=== PATIENT | female | born 1965 | race Hispanic/Latino ===

== ENCOUNTER 2019-12-16 19:44 | Emergency (ER) | payer OTHER ==
[2019-12-16] MEDS ORDERED: ONDANSETRON HCL 4 MG/2 ML VIAL ONE (20:35)
[2019-12-16] MEDS ORDERED: MORPHINE SULFATE 4 MG/1ML SYG ONE (20:35)
[2019-12-16] MEDS ORDERED: ACETAMINOPHEN EXTRA STRENGTH 500 MG TABLET ONE (22:18)
== END 2019-12-16 23:19 | disposition home or self-care (01) ==
LOC: EDH 19:44
DX: S80.02XA Contusion of left knee, initial encounter (principal); S60.222A Contusion of left hand, initial encounter; I10 Essential (primary) hypertension; Z87.891 Personal history of nicotine dependence; W18.39XA Other fall on same level, initial encounter; Y93.01 Activity, walking, marching and hiking; Y92.89 Other specified places as the place of occurrence of the external cause; Y99.8 Other external cause status
CPT/HCPCS: 72100; 73130; 73502; 73562; 96374; 96375; 99284; J2270; J2405

== ENCOUNTER 2020-04-29 08:52 | Inpatient (IN) | payer SELFPAY ==
[~2020-04-29] VITALS: Ht 154.9 cm; Wt 104.2 kg
[2020-04-29 09:21] LABS: BASOPHILS % (AUTO) 0.2 % (0.0-5.0); EOSINOPHILS % (AUTO) 0.2 % (0.0-8.0); HEMATOCRIT 42.3 % (36-48); LYMPHOCYTES % (AUTO) 10.4 % (21.0-51.0); MEAN CORPUSCULAR HEMOGLOBIN 29.8 pg (27.0-33.0); MEAN CORPUSCULAR HGB CONC 32.9 g/dL (32.0-36.0); MEAN CORPUSCULAR VOLUME 90.6 fL (79-99); MONOCYTES % (AUTO) 9.6 % (3.0-13.0); NEUTROPHILS % (AUTO) 79.3 % (40.0-77.0); PLATELET COUNT (AUTO) 201 K/uL (130-400); RED BLOOD CELL COUNT(AUTO) 4.67 MIL/uL (4.00-5.50); RED CELL DISTRIBUTION WIDTH 12.9 % (11.0-15.5); WHITE BLOOD COUNT (AUTO) 9.8 K/uL (4.8-10.8)
[2020-04-29] MEDS ORDERED: MORPHINE SULFATE 4 MG/1ML SYG ONE ×2 (09:24→12:08)
[2020-04-29 09:32] LABS: APPEARANCE,URINE Cloudy (CLEAR); BILIRUBIN,URINE Negative (NEGATIVE); COLOR,URINE Dark Yellow (YELLOW); GLUCOSE, URINE (UA) Negative (NEGATIVE); KETONES,URINE Trace mg/dL (NEGATIVE); LEUKOCYTE ESTERASE ,URINE Negative (NEGATIVE); NITRATE,URINE Negative (NEGATIVE); OCCULT BLOOD,URINE Trace (NEGATIVE); PH,URINE 5.5 (5.0-8.0); PROTEIN,URINE Trace mg/dL (NEGATIVE)
[2020-04-29 09:37] LABS: CREATININE 0.7 mg/dL (0.5-1.5); POTASSIUM 3.4 mmol/L (3.5-5.1)
[2020-04-29 09:43] LABS: BILIRUBIN,DIRECT 0.1 mg/dL (0.0-0.3); BILIRUBIN,TOTAL 0.7 mg/dL (0.2-1.0); TOTAL PROTEIN, SERUM 7.7 g/dL (6.0-8.3)
[2020-04-29 09:49] LABS: BACTERIA,URINE Rare /HPF (None Seen); RBC,URINE 0-1 /HPF (0-1); WBC,URINE None Seen /HPF (0-1)
[2020-04-29 09:50] LABS: MUCUS,URINE Many LPF (None Seen)
[2020-04-29] MEDS ORDERED: IOHEXOL-350 75 ML VIAL IV ONE (12:27)
[2020-04-29] MEDS ORDERED: ACETAMINOPHEN 325 MG TAB PO PRN ×2 (16:15)
[2020-04-29] MEDS ORDERED: ONDANSETRON HCL 4 MG/2 ML VIAL IV PRN (16:15)
[2020-04-29] MEDS: AZITHROMYCIN 500MG+NS 250ML 250 ML IV SCH (16:15)
[2020-04-29] MEDS: CEFTRIAXONE SODIUM 1 GM IV SCH (16:15)
[2020-04-29] MEDS ORDERED: INSULIN HUMULIN R 100 UNIT/ML 3ML SQ SCH (16:30)
[2020-04-29 16:43] LABS: CHOLESTEROL 211 mg/dL (<200); HDL CHOLESTEROL 101 mg/dL (35-85); LDL DIRECT 133 mg/dL (0-99); TRIGLYCERIDES 91 mg/dL (30-200)
[2020-04-29] MEDS ORDERED: SODIUM CHLORIDE 0.9% 1000ML 1,000 ML IV ONE (16:51)
[2020-04-29] MEDS ORDERED: AZITHROMYCIN 500MG+NS 250ML 250 ML IV ONE (16:51)
[2020-04-29] MEDS ORDERED: CEFTRIAXONE SODIUM 1 GM ONE (16:51)
[2020-04-29] MEDS ORDERED: POTASSIUM CHLORIDE 10% ELIXIR 20 MEQ/15 ML UDCUP PO PRN (17:00)
[2020-04-29] MEDS ORDERED: LIDOCAINE HCL-MPF 1% 2ML VIAL IV PRN (17:00)
[2020-04-29] MEDS ORDERED: POTASSIUM CHLORIDE 10MEQ/100ML 100 ML IV PRN (17:00)
[2020-04-29] MEDS ORDERED: POTASSIUM CHLORIDE 20 MEQ ERTAB PO PRN (17:00)
[2020-04-29] MEDS ORDERED: HYDROMORPHONE HCL 0.5 MG/0.5 ML ML ONE (17:12)
[2020-04-29 20:07] LABS: HEMOGLOBIN A1C 5.6 % (4.0-6.0)
[2020-04-29] MEDS: FAMOTIDINE/PF 20 MG/2 ML VIAL IV SCH (21:00)
[2020-04-29 21:05] VITALS: BP 146/100
[2020-04-29] MEDS: HYDROMORPHONE HCL 0.5 MG/0.5 ML ML IV PRN (21:14)
[2020-04-29] MEDS: SODIUM CHLORIDE 0.9% 1000ML 1,000 ML IV SCH (21:35)
[2020-04-29] MEDS: MORPHINE SULFATE 2 MG/ML 1ML SYG IV PRN (21:36)
[2020-04-29 23:22] VITALS: BP 140/81
[2020-04-30] MEDS: SODIUM CHLORIDE 0.9% 1000ML 1,000 ML IV SCH ×3 (01:26→19:38)
[2020-04-30 03:40] VITALS: BP 142/78
[2020-04-30] MEDS: HYDROMORPHONE HCL 0.5 MG/0.5 ML ML IV PRN ×3 (05:44→19:39)
[2020-04-30 06:01] LABS: BASOPHILS % (AUTO) 0.2 % (0.0-5.0); EOSINOPHILS % (AUTO) 0.2 % (0.0-8.0); HEMATOCRIT 39.1 % (36-48); LYMPHOCYTES % (AUTO) 11.9 % (21.0-51.0); MEAN CORPUSCULAR HEMOGLOBIN 30.4 pg (27.0-33.0); MEAN CORPUSCULAR HGB CONC 34.3 g/dL (32.0-36.0); MEAN CORPUSCULAR VOLUME 88.7 fL (79-99); MONOCYTES % (AUTO) 10.4 % (3.0-13.0); NEUTROPHILS % (AUTO) 76.9 % (40.0-77.0); PLATELET COUNT (AUTO) 172 K/uL (130-400); RED BLOOD CELL COUNT(AUTO) 4.41 MIL/uL (4.00-5.50); RED CELL DISTRIBUTION WIDTH 12.5 % (11.0-15.5); WHITE BLOOD COUNT (AUTO) 8.1 K/uL (4.8-10.8)
[2020-04-30 06:15] LABS: ALBUMIN 2.5 g/dL (3.5-5.0); BILIRUBIN,TOTAL 0.6 mg/dL (0.2-1.0); CREATININE 0.6 mg/dL (0.5-1.5); POTASSIUM 3.2 mmol/L (3.5-5.1); TOTAL PROTEIN, SERUM 6.6 g/dL (6.0-8.3)
[2020-04-30 08:00] VITALS: BP 145/93
[2020-04-30] MEDS: FAMOTIDINE/PF 20 MG/2 ML VIAL IV SCH ×2 (08:48→19:38)
[2020-04-30] MEDS: MORPHINE SULFATE 2 MG/ML 1ML SYG IV PRN ×2 (08:48→23:39)
[2020-04-30] MEDS: ENOXAPARIN SODIUM 30 MG/0.3 ML SQ SCH (08:49)
--- NOTE | 2020-04-30 09:00 | NUR ---
ON 1/2 SCALE POT. PROTOCOL. DOES NOT REQUIRE COVERAGE FOR 3.2
[2020-04-30 12:00] VITALS: BP 168/87
[2020-04-30 16:00] VITALS: BP_SYST 132; BP_SYST 158; BP_DIAS 68; BP_DIAS 98
--- NOTE | 2020-04-30 16:47 | NUR ---
SPOKE TO PATIENT AT BEDSIDE FOR DC PLNAING PATIENT STATES LIVES ALONE- FATHER RECENTLY , SON RECENTLY MOVED OUT, EX SPOUSE IS ON FACE SHEET - PATIENT STATES LEAVE IM NEXT OF KIN STATES INDEPENDENT, DRIVES, NO DMES, GRIEVING FROM RECENT LOSS OF PARENT, NO MD, HAS NOT BEEN TO MD IN MANY YEARS, [employer] DISCUSSED WILL FOLLOW UP ON DISCHARGE Addendum: 04/30/20 at 1649 by EZEQUIEL MAY RN CM Amended: Links added.
[2020-04-30] MEDS: AZITHROMYCIN 500MG+NS 250ML 250 ML IV SCH (16:57)
[2020-04-30] MEDS: CEFTRIAXONE SODIUM 1 GM IV SCH (16:57)
[2020-04-30 19:58] VITALS: BP 184/93
[2020-05-01 00:03] VITALS: BP_SYST 83
[2020-05-01 04:19] VITALS: BP 158/98
[2020-05-01] MEDS: HYDROMORPHONE HCL 0.5 MG/0.5 ML ML IV PRN ×4 (04:21→21:35)
[2020-05-01 05:59] LABS: BASOPHILS % (AUTO) 0.2 % (0.0-5.0); EOSINOPHILS % (AUTO) 0.1 % (0.0-8.0); HEMATOCRIT 42.9 % (36-48); LYMPHOCYTES % (AUTO) 9.1 % (21.0-51.0); MEAN CORPUSCULAR HEMOGLOBIN 29.9 pg (27.0-33.0); MEAN CORPUSCULAR HGB CONC 34.3 g/dL (32.0-36.0); MEAN CORPUSCULAR VOLUME 87.4 fL (79-99); MONOCYTES % (AUTO) 9.6 % (3.0-13.0); NEUTROPHILS % (AUTO) 80.6 % (40.0-77.0); PLATELET COUNT (AUTO) 221 K/uL (130-400); RED BLOOD CELL COUNT(AUTO) 4.91 MIL/uL (4.00-5.50); RED CELL DISTRIBUTION WIDTH 12.2 % (11.0-15.5); WHITE BLOOD COUNT (AUTO) 8.9 K/uL (4.8-10.8)
[2020-05-01 06:17] LABS: ALBUMIN 2.7 g/dL (3.5-5.0); BILIRUBIN,TOTAL 0.6 mg/dL (0.2-1.0); CREATININE 0.6 mg/dL (0.5-1.5); MAGNESIUM 2.5 mg/dL (1.80-2.40); POTASSIUM 3.8 mmol/L (3.5-5.1); TOTAL PROTEIN, SERUM 7.4 g/dL (6.0-8.3)
[2020-05-01] MEDS: MORPHINE SULFATE 2 MG/ML 1ML SYG IV PRN (06:30)
[2020-05-01 07:30] VITALS: BP 148/85
[2020-05-01 11:00] VITALS: BP 149/87
[2020-05-01] MEDS: ENOXAPARIN SODIUM 30 MG/0.3 ML SQ SCH (11:00)
[2020-05-01] MEDS: CEFTRIAXONE SODIUM 1 GM IV SCH (11:00)
[2020-05-01] MEDS: AMLODIPINE BESYLATE 5 MG TAB PO SCH (11:00)
[2020-05-01] MEDS: AZITHROMYCIN 500MG+NS 250ML 250 ML IV SCH (11:00)
[2020-05-01] MEDS: FAMOTIDINE/PF 20 MG/2 ML VIAL IV SCH ×2 (11:00→20:14)
[2020-05-01] MEDS: SODIUM CHLORIDE 0.9% 1000ML 1,000 ML IV SCH ×2 (11:01→15:35)
[2020-05-01 16:00] VITALS: BP 162/100
[2020-05-01 20:59] VITALS: BP 168/93
[2020-05-02] VITALS (27 sets, daily range): BP systolic 119–170; BP diastolic 56–100
[2020-05-02] MEDS: HYDROMORPHONE HCL 0.5 MG/0.5 ML ML IV PRN ×3 (02:12→22:28)
[2020-05-02] MEDS: SODIUM CHLORIDE 0.9% 1000ML 1,000 ML IV SCH ×2 (03:44→14:15)
[2020-05-02 06:03] LABS: HEMATOCRIT 41.2 % (36-48); MEAN CORPUSCULAR HEMOGLOBIN 29.8 pg (27.0-33.0); MEAN CORPUSCULAR HGB CONC 34.2 g/dL (32.0-36.0); MEAN CORPUSCULAR VOLUME 87.1 fL (79-99); RED BLOOD CELL COUNT(AUTO) 4.73 MIL/uL (4.00-5.50); RED CELL DISTRIBUTION WIDTH 12.2 % (11.0-15.5); WHITE BLOOD COUNT (AUTO) 7.8 K/uL (4.8-10.8)
[2020-05-02 06:24] LABS: CARBON DIOXIDE 23 mmol/L (21-32); CHLORIDE 101 mmol/L (101-111); CREATININE 0.7 mg/dL (0.5-1.5); GLOMERULAR FILTR. RATE CALC 93 mL/min (>60); GLUCOSE,RANDOM 80 mg/dL (70-105); POTASSIUM 3.4 mmol/L (3.5-5.1); SODIUM SERUM 137 mmol/L (136-145); UREA NITROGEN, BLOOD 9 mg/dL (7-18)
[2020-05-02] MEDS: AMLODIPINE BESYLATE 5 MG TAB PO SCH (09:39)
[2020-05-02] MEDS: FAMOTIDINE/PF 20 MG/2 ML VIAL IV SCH ×2 (09:39→21:39)
[2020-05-02] MEDS: ENOXAPARIN SODIUM 30 MG/0.3 ML SQ SCH (09:39)
[2020-05-02] MEDS ORDERED: PROPOFOL 10 MG/ML 20ML VIAL IV ONE (14:15)
[2020-05-02 21:39] LABS: APPEARANCE BODY FLUID CLEAR (CLEAR); SPECIMENTYPE,BODY FLUID LAVAGE
[2020-05-02 21:40] LABS: BODY FLUID RBC 476 /cu. mm.; BODY FLUID WBC 57 /cu. mm.; COLOR,BODY FLUID COLORLESS (LT YELLOW); TOTAL VOLUME,BODY FLUID 30 mL
[2020-05-02 22:06] LABS: BF LYMPHOCYTE 23 %; BF MESOTHELIAL 1 %; BF MONOCYTE 1 %; BF OTHER CELLS 3
[2020-05-03] MEDS: SODIUM CHLORIDE 0.9% 1000ML 1,000 ML IV SCH ×2 (00:15→12:08)
[2020-05-03] MEDS: HYDROMORPHONE HCL 0.5 MG/0.5 ML ML IV PRN ×2 (03:17→09:39)
[2020-05-03 03:32] VITALS: BP 171/99
[2020-05-03 07:30] VITALS: BP 154/105
[2020-05-03] MEDS: AMLODIPINE BESYLATE 5 MG TAB PO SCH (09:33)
[2020-05-03] MEDS: FAMOTIDINE/PF 20 MG/2 ML VIAL IV SCH (09:33)
[2020-05-03] MEDS: ENOXAPARIN SODIUM 30 MG/0.3 ML SQ SCH (09:34)
[2020-05-03 11:32] VITALS: BP 171/99
[2020-05-03] MEDS ORDERED: AZIT250T9 PO (11:40)
[2020-05-03] MEDS ORDERED: IBUP-2077 PO (11:40)
[2020-05-03] MEDS ORDERED: LISI1TAB32 PO (11:40)
[2020-05-03] MEDS ORDERED: AMLO5TAB4 PO (11:40)
[2020-05-03] MEDS ORDERED: LISINOPRIL 10 MG TABLET PO SCH (11:45)
[2020-05-03] MEDS ORDERED: HYDROCHLOROTHIAZIDE 25 MG TABLET PO SCH (11:45)
== END 2020-05-03 14:59 | disposition home or self-care (01) | DRG 194 ==
LOC: EDH 08:52 → EDHIP 08:53 → 4BH 20:27
PROVIDERS: ADMIT Hospitalist; ATTEND Hospitalist
PROC: 0B9F8ZX Drainage of Right Lower Lung Lobe, Via Natural or Artificial Opening Endoscopic, Diagnostic (ICD-10-PCS; principal; 2020-05-02)
PROC: 0BD68ZX Extraction of Right Lower Lobe Bronchus, Via Natural or Artificial Opening Endoscopic, Diagnostic (ICD-10-PCS; 2020-05-02)
DX: J15.9 Unspecified bacterial pneumonia (principal); Z68.42 Body mass index [BMI] 45.0-49.9, adult; J90 Pleural effusion, not elsewhere classified; K86.1 Other chronic pancreatitis; Z20.828 Contact with and (suspected) exposure to other viral communicable diseases; F17.200 Nicotine dependence, unspecified, uncomplicated; I10 Essential (primary) hypertension; Z90.710 Acquired absence of both cervix and uterus; Z98.891 History of uterine scar from previous surgery; F41.9 Anxiety disorder, unspecified; F32.9 Major depressive disorder, single episode, unspecified; E78.5 Hyperlipidemia, unspecified; E78.00 Pure hypercholesterolemia, unspecified; E87.6 Hypokalemia; E66.01 Morbid (severe) obesity due to excess calories; F12.90 Cannabis use, unspecified, uncomplicated; R63.4 Abnormal weight loss; R16.0 Hepatomegaly, not elsewhere classified
CPT/HCPCS: 31622; 31628; 36415; 71045; 74177; 76000; 76705; 80048; 80053; 80061; 80076; 81001; 81025; 82150; 82948; 83036; 83690; 83735; 83880; 84145; 85025; 85027; 87071; 87101; 87116; 87205; 87206; 87426; 89051; A4606; G0378; J0456; J0696; J1170; J1650; J2270; J2704; J3490; J7030; Q9967; U0003

== ENCOUNTER 2020-05-14 12:48 | Inpatient (IN) | payer SELFPAY ==
[~2020-05-14] VITALS: Ht 154.9 cm; Wt 103.5 kg
[~2020-05-14 12:48] MED LIST: AMLO5TAB4 PO; AZIT250T9 PO; IBUP-2077 PO; LISI1TAB32 PO
[2020-05-14 13:24] LABS: BASOPHILS % (AUTO) 0.2 % (0.0-5.0); EOSINOPHILS % (AUTO) 0.3 % (0.0-8.0); HEMATOCRIT 41.4 % (36-48); MEAN CORPUSCULAR HGB CONC 33.6 g/dL (32.0-36.0); MEAN CORPUSCULAR VOLUME 86.3 fL (79-99); MONOCYTES % (AUTO) 7.3 % (3.0-13.0); NEUTROPHILS % (AUTO) 80.8 % (40.0-77.0); PLATELET COUNT (AUTO) 316 K/uL (130-400); RED CELL DISTRIBUTION WIDTH 12.2 % (11.0-15.5); WHITE BLOOD COUNT (AUTO) 11.7 K/uL (4.8-10.8)
[2020-05-14 13:29] LABS: APPEARANCE,URINE Clear (CLEAR); BILIRUBIN,URINE Negative (NEGATIVE); COLOR,URINE Yellow (YELLOW); GLUCOSE, URINE (UA) Negative (NEGATIVE); KETONES,URINE Negative (NEGATIVE); LEUKOCYTE ESTERASE ,URINE Negative (NEGATIVE); NITRATE,URINE Negative (NEGATIVE); OCCULT BLOOD,URINE Negative (NEGATIVE); PH,URINE 5.5 (5.0-8.0); PROTEIN,URINE Negative (NEGATIVE); UROBILINOGEN,URINE 0.2 mg/dL (0.2-1.0)
[2020-05-14 13:32] LABS: CREATININE 0.9 mg/dL (0.5-1.5); POTASSIUM 3.1 mmol/L (3.5-5.1)
[2020-05-14 13:36] LABS: ALBUMIN 2.5 g/dL (3.5-5.0); BILIRUBIN,TOTAL 0.3 mg/dL (0.2-1.0); TOTAL PROTEIN, SERUM 7.5 g/dL (6.0-8.3)
[2020-05-14] MEDS ORDERED: SODIUM CHLORIDE 0.9% 1000ML 1,000 ML IV ONE ×2 (14:33→19:43)
[2020-05-14] MEDS ORDERED: ONDANSETRON HCL 4 MG/2 ML VIAL ONE ×2 (14:34→23:59)
[2020-05-14] MEDS ORDERED: DICYCLOMINE HCL 10 MG/ML 2ML AMP IM ONE (14:35)
[2020-05-14] MEDS ORDERED: MORPHINE SULFATE 2 MG/ML 1ML SYG ONE (14:35)
[2020-05-14] MEDS ORDERED: ZOSYN 3.375GM+NS 50ML 50 ML IV ONE (17:00)
[2020-05-14] MEDS: SODIUM CHLORIDE 0.9% 1000ML 1,000 ML IV SCH (18:30)
[2020-05-14] MEDS ORDERED: ACETAMINOPHEN 325 MG TAB PO PRN ×2 (18:30)
[2020-05-14] MEDS ORDERED: HYDRALAZINE HCL 20 MG/ML VIAL IV PRN (18:30)
[2020-05-14] MEDS ORDERED: MEPERIDINE-PF 50 MG/ML SYG IVP PRN (18:45)
[2020-05-14] MEDS ORDERED: FAMOTIDINE/PF 20 MG/2 ML VIAL IV ONE (19:43)
[2020-05-14] MEDS ORDERED: MEPERIDINE-PF 25 MG/ML SYG ONE ×2 (19:43→23:59)
[2020-05-14] MEDS: ZOSYN 3.375GM+NS 50ML 50 ML IV SCH (21:00)
[2020-05-14] MEDS: FAMOTIDINE/PF 20 MG/2 ML VIAL IV SCH (21:00)
[2020-05-15] VITALS (7 sets, daily range): BP systolic 115–161; BP diastolic 66–91
[2020-05-15] MEDS ORDERED: LIDOCAINE HCL-MPF 1% 2ML VIAL IV PRN
[2020-05-15] MEDS ORDERED: POTASSIUM CHLORIDE 20MEQ/100ML 100 ML IV ONE (01:20)
[2020-05-15] MEDS: POTASSIUM CHLORIDE 20MEQ/100ML 100 ML IV PRN ×2 (01:25→04:54)
[2020-05-15] MEDS: ZOSYN 3.375GM+NS 50ML 50 ML IV SCH ×3 (03:24→22:17)
[2020-05-15 04:18] LABS: BASOPHILS % (AUTO) 0.4 % (0.0-5.0); EOSINOPHILS % (AUTO) 0.5 % (0.0-8.0); HEMATOCRIT 34.2 % (36-48); LYMPHOCYTES % (AUTO) 17.5 % (21.0-51.0); MEAN CORPUSCULAR HGB CONC 33.3 g/dL (32.0-36.0); MONOCYTES % (AUTO) 9.7 % (3.0-13.0); NEUTROPHILS % (AUTO) 71.5 % (40.0-77.0); PLATELET COUNT (AUTO) 264 K/uL (130-400); RED BLOOD CELL COUNT(AUTO) 3.93 MIL/uL (4.00-5.50); RED CELL DISTRIBUTION WIDTH 12.1 % (11.0-15.5); WHITE BLOOD COUNT (AUTO) 8.6 K/uL (4.8-10.8)
[2020-05-15 04:34] LABS: BILIRUBIN,TOTAL 0.4 mg/dL (0.2-1.0); CREATININE 0.7 mg/dL (0.5-1.5); TOTAL PROTEIN, SERUM 6.3 g/dL (6.0-8.3)
[2020-05-15 04:40] LABS: POTASSIUM 2.9 mmol/L (3.5-5.1)
[2020-05-15] MEDS: MEPERIDINE-PF 25 MG/ML SYG IV PRN ×2 (04:55→22:18)
[2020-05-15] MEDS: SODIUM CHLORIDE 0.9% 1000ML 1,000 ML IV SCH ×2 (05:01→22:17)
[2020-05-15] MEDS: FAMOTIDINE/PF 20 MG/2 ML VIAL IV SCH ×2 (09:12→22:17)
[2020-05-15] MEDS: HYDROCHLOROTHIAZIDE 25 MG TABLET PO SCH (09:12)
[2020-05-15] MEDS: AMLODIPINE BESYLATE 5 MG TAB PO SCH (09:12)
[2020-05-15] MEDS: LISINOPRIL 10 MG TABLET PO SCH (09:12)
--- NOTE | 2020-05-15 21:31 | NUR ---
NOTE PATIENT RETURNED FORM HIDA SCAN AND IS TAKING A SHOWER.
[2020-05-16] MEDS: POTASSIUM CHLORIDE 20MEQ/100ML 100 ML IV PRN (01:53)
[2020-05-16 03:26] VITALS: BP 149/79
[2020-05-16] MEDS: ONDANSETRON HCL 4 MG/2 ML VIAL IV PRN ×2 (05:48→12:05)
[2020-05-16] MEDS: SODIUM CHLORIDE 0.9% 1000ML 1,000 ML IV SCH (05:48)
[2020-05-16] MEDS: ZOSYN 3.375GM+NS 50ML 50 ML IV SCH ×2 (05:49→12:04)
[2020-05-16] MEDS: MEPERIDINE-PF 25 MG/ML SYG IV PRN ×2 (05:49→12:05)
[2020-05-16 08:48] VITALS: BP 129/70
[2020-05-16] MEDS: LISINOPRIL 10 MG TABLET PO SCH (09:47)
[2020-05-16] MEDS: FAMOTIDINE/PF 20 MG/2 ML VIAL IV SCH (09:47)
[2020-05-16] MEDS: HYDROCHLOROTHIAZIDE 25 MG TABLET PO SCH (09:47)
[2020-05-16] MEDS: AMLODIPINE BESYLATE 5 MG TAB PO SCH (09:48)
[2020-05-16 12:17] VITALS: BP 141/74
--- NOTE | 2020-05-16 15:16 | NUR ---
PATRICK JERONIMO/IA MET WITH PATIENT IN ROOM. PER PATIENT, LIVES WITH HER FATHER, INDEPENDENT WITH ADLS, NO USE OF PROVIDER SERVICES OR HOME HEALTH, HAS ACCESS TO [employer] AND [employer] AND FEELS SAFE TO RETURN HOME ONCE DISCHARGED. SELF REFERRAL PACKETS AND GOOD RX COUPON GIVEN TO PATIENT, VERBALIZED UNDERSTANDING OF INFORMATION. Addendum: 05/16/20 at 1520 by JAQUAN STOVALL RN CM Amended: Links added.
--- NOTE | 2020-05-16 15:20 | NUR ---
CM NOTE/SPOUSE PHONE NUMBER PER PATIENT, CORRECT NEXT OF KIN PHONE NUMBER FOLLOWS: HERLINDA LOPEZ JR, SPOUSE, . Addendum: 05/16/20 at 1520 by JAQUAN STOVALL RN CM Amended: Links added.
[2020-05-16 17:20] VITALS: BP 139/88
[2020-05-16] MEDS ORDERED: PANT40TA PO (17:28)
[2020-05-16] MEDS ORDERED: IBUP-2077 PO (17:28)
[2020-05-16] MEDS ORDERED: BACL5TAB PO (17:28)
--- NOTE | 2020-05-17 12:21 | NUR ---
Transitional Care - Post Discharge Note NO ANSWER to telephone number listed on file. Mailbox full and unable to leave message. Addendum: 05/17/20 at 1222 by GALILEA PELAEZ Amended: Links added.
== END 2020-05-16 19:28 | disposition home or self-care (01) | DRG 392 ==
LOC: EDH 12:48 → EDHIP 12:49 → 3CH 05-15 00:04
PROVIDERS: ADMIT Internal Medicine; ATTEND Internal Medicine
DX: R10.9 Unspecified abdominal pain (principal); K86.1 Other chronic pancreatitis; Z68.41 Body mass index [BMI] 40.0-44.9, adult; E66.01 Morbid (severe) obesity due to excess calories; I10 Essential (primary) hypertension; D72.829 Elevated white blood cell count, unspecified; M54.5 Low back pain; Z90.710 Acquired absence of both cervix and uterus; Z82.3 Family history of stroke; Z82.49 Family history of ischemic heart disease and other diseases of the circulatory system
CPT/HCPCS: 36415; 74176; 76705; 78227; 80053; 81003; 82150; 83690; 84132; 84145; 84484; 85025; 87040; 93005; A9537; G0378; J0500; J2175; J2405; J2543; J3480; J3490; J7030

== ENCOUNTER 2021-12-08 09:04 | Emergency (ER) | payer OTHER ==
[~2021-12-08] VITALS: Ht 154.9 cm; Wt 107.5 kg
[~2021-12-08 09:04] MED LIST changes: -AZIT250T9 PO; +BACL5TAB PO; -LISI1TAB32 PO; +LISI1TAB49 PO; +PANT40TA PO
[2021-12-08] MEDS ORDERED: LIDOCAINE HCL 1% MDV 50ML VIAL ONE (09:13)
[2021-12-08 09:16] VITALS: BP 189/98
[2021-12-08] MEDS ORDERED: NEOM28.36 TP (09:28)
[2021-12-08] MEDS ORDERED: TETANUS/DIPHTHERIA TOXOID [ADULT] 0.5 ML VIAL IM ONE (09:30)
== END 2021-12-08 09:46 | disposition home or self-care (01) ==
LOC: EDH 09:04
DX: S90.861A Insect bite (nonvenomous), right foot, initial encounter (principal); Z79.899 Other long term (current) drug therapy; W57.XXXA Bitten or stung by nonvenomous insect and other nonvenomous arthropods, initial encounter; Y93.89 Activity, other specified; Y92.89 Other specified places as the place of occurrence of the external cause; Y99.8 Other external cause status
CPT/HCPCS: 10060; 90471; 90714; 99283; J3490

== ENCOUNTER 2022-02-08 16:00 | Emergency (ER) | payer OTHER ==
[~2022-02-08] VITALS: Ht 154.9 cm; Wt 104.3 kg
[~2022-02-08 16:00] MED LIST changes: +NEOM28.36 TP
[2022-02-08 19:46] VITALS: BP 145/61
[2022-02-08] MEDS ORDERED: KETOROLAC 15MG/ML VIAL (15MG/ML) ONE (19:49)
[2022-02-08] MEDS ORDERED: KETOROLAC 15MG/ML VIAL (15MG/ML) IM ONE (20:00)
== END 2022-02-08 20:08 | disposition home or self-care (01) ==
LOC: EDH 16:00
DX: G89.29 Other chronic pain (principal); M25.562 Pain in left knee; M19.90 Unspecified osteoarthritis, unspecified site; Z79.899 Other long term (current) drug therapy
CPT/HCPCS: 99283; 96372; J1885

== ENCOUNTER 2022-07-15 18:21 | Emergency (ER) | payer OTHER ==
[~2022-07-15] VITALS: Ht 162.6 cm; Wt 107.0 kg
[2022-07-15 19:12] LABS: BASOPHILS % (AUTO) 0.3 % (0.0-5.0); EOSINOPHILS % (AUTO) 1.2 % (0.0-8.0); HEMATOCRIT 43.6 % (36-48); LYMPHOCYTES % (AUTO) 20.2 % (21.0-51.0); MEAN CORPUSCULAR HEMOGLOBIN 30.8 pg (27.0-33.0); MEAN CORPUSCULAR HGB CONC 34.4 g/dL (32.0-36.0); MEAN CORPUSCULAR VOLUME 89.5 fL (79-99); MONOCYTES % (AUTO) 6.9 % (3.0-13.0); NEUTROPHILS % (AUTO) 71.1 % (40.0-77.0); PLATELET COUNT (AUTO) 170 K/uL (130-400); RED BLOOD CELL COUNT(AUTO) 4.87 MIL/uL (4.00-5.50); RED CELL DISTRIBUTION WIDTH 12.4 % (11.0-15.5)
[2022-07-15 19:20] LABS: CREATININE 0.9 mg/dL (0.5-1.5); POTASSIUM 3.7 mmol/L (3.5-5.1)
[2022-07-15 19:26] LABS: ALBUMIN 3.4 g/dL (3.5-5.0); TOTAL PROTEIN, SERUM 7.3 g/dL (6.0-8.3)
[2022-07-15 23:23] VITALS: BP 162/81
[2022-07-15 23:42] LABS: APPEARANCE,URINE CLEAR (CLEAR); BILIRUBIN,URINE NEGATIVE (NEGATIVE); COLOR,URINE LIGHT-YELLOW (YELLOW); GLUCOSE, URINE (UA) NEGATIVE (NEGATIVE); KETONES,URINE 5 mg/dL (NEGATIVE); LEUKOCYTE ESTERASE ,URINE NEGATIVE Leu/uL (NEGATIVE); NITRATE,URINE NEGATIVE (NEGATIVE); OCCULT BLOOD,URINE SMALL (NEGATIVE); PH,URINE 5.5 (5.0-8.0); PROTEIN,URINE NEGATIVE (NEGATIVE); UROBILINOGEN,URINE 0.2 mg/dL (0.2-1.0)
[2022-07-15 23:44] LABS: BACTERIA,URINE RARE /HPF (None Seen); MUCUS,URINE RARE LPF (None Seen); SQUAMOUS EPITHELIAL CELL,UR FEW /HPF (0-2)
[2022-07-15] MEDS ORDERED: IBUP-2076 PO (23:57)
== END 2022-07-16 00:07 | disposition home or self-care (01) ==
LOC: EDH 18:21
DX: R07.89 Other chest pain (principal); M19.90 Unspecified osteoarthritis, unspecified site; G62.9 Polyneuropathy, unspecified; Z79.899 Other long term (current) drug therapy; Z90.710 Acquired absence of both cervix and uterus
CPT/HCPCS: 36415; 71101; 80053; 81001; 85025

== ENCOUNTER 2023-02-04 16:47 | Emergency (ER) | payer OTHER ==
[~2023-02-04 16:47] MED LIST changes: +IBUP-2076 PO
== END 2023-02-04 17:27 | disposition left against medical advice (07) ==
LOC: EDH 16:47
DX: Z53.21 Procedure and treatment not carried out due to patient leaving prior to being seen by health care provider (principal)
CPT/HCPCS: 99281

== ENCOUNTER → 2024-06-06 | Emergency (ER) | payer OTHER ==
[~2024-06-06] VITALS: Ht 162.6 cm; Wt 106.6 kg
[2024-06-06 21:23] VITALS: BP 170/85; PULSE 65; RESP 20; TEMP 97.9
--- NOTE | 2024-06-06 23:49 | ERN ---
General Chief Complaint: Puncture Wound Stated Complaint: C/O PUNCTURE WOUND TO LEFT LOWER LEG Time Seen by MD: 21:29 History of Present Illness Allergies: Coded Allergies: No Known Drug Allergies (Verified Allergy, Unknown, 04/29/20) Home Meds Active Scripts Ibuprofen (Ibuprofen) 400 Mg Tablet, 400 MG PO TIDP, #30 TAB Prov:JEFFRY GILES MD 07/15/22 Neomy Sulf/Bacitrac Zn/Poly (Neosporin Ointment) 28.3 Gm Oint...g., 28.3 GM TP BID for 7 Days, #60 TUBE Prov:FLEX AGUILAR MD 12/08/21 Pantoprazole Sodium (Protonix) 40 Mg Tablet.dr, 40 MG PO DAILY for 30 Days, #30 TAB Prov:JESSICA PARKER Jr., MD 05/16/20 Ibuprofen (Ibuprofen 800 mg Tab) 800 Mg Tab, 800 MG PO TIDAC for 4 Days, #12 TAB Prov:JESSICA PARKER Jr., MD 05/16/20 Baclofen (Baclofen) 5 Mg Tablet, 5 MG PO TID for 4 Days, #12 TAB Prov:JESSICA PARKER Jr., MD 05/16/20 Lisinopril/Hydrochlorothiazide (Lisinopril-Hctz 10-12.5 mg Tab) 1 Each Tablet, 1 EACH PO DAILY for 30 Days, #30 TAB Prov:JESSICA PARKER Jr., MD 05/03/20 Amlodipine Besylate (Norvasc 5Mg Tab) 5 Mg Tablet, 5 MG PO DAILY for 30 Days, #30 TAB Prov:JESSICA PARKER Jr., MD 05/03/20 Past Medical History Past Medical History: Anxiety, Bipolar, Depression Medical History Other: HX OF GOUT Past Surgical History: Other MDM Patient eloped prior to my evaluation. ED Course Vital Signs Date Time Temp Pulse Resp B/P (MAP) Pulse Ox O2 Delivery O2 Flow Rate FiO2 06/06/24 21:23 97.9 65 20 170/85 98 Room Air DX & DISP Disposition: Other(Comment) (Eloped) Departure Condition: Stable Referrals: MARY ELLEN CROCKER (PCP) TREY CHACON DO Jun 06, 2024 23:49
== END ==
LOC: EDH 21:20
DX: S81.832A Puncture wound without foreign body, left lower leg, initial encounter (principal); F31.9 Bipolar disorder, unspecified; Z79.899 Other long term (current) drug therapy; Z53.21 Procedure and treatment not carried out due to patient leaving prior to being seen by health care provider; X58.XXXA Exposure to other specified factors, initial encounter; Y93.89 Activity, other specified; Y92.89 Other specified places as the place of occurrence of the external cause; Y99.8 Other external cause status

== ENCOUNTER 2024-08-18 08:05 | Emergency (ER) | payer OTHER ==
[~2024-08-18] VITALS: Ht 154.9 cm; Wt 104.3 kg
[2024-08-18] MEDS: morPHINE 4 MG SYG IVP ONE (08:39)
[2024-08-18] MEDS: ondanSETRON 4MG INJ IVP ONE (08:39)
--- NOTE | 2024-08-18 10:00 | HMCIMG ---
CT CHEST/ABD/PELV W/O CONTRAST HISTORY: Injury COMPARISON: 05/14/2020 TECHNIQUE: Multiple sequential axial images of the chest were obtained from the thoracic inlet through upper abdomen. Patient was not given contrast through intravenous route. FINDINGS: There is right lower lobe pulmonary nodule posteriorly measuring 11.3 mm. There are bibasilar linear atelectasis. Tiny hiatal hernia is seen. No pleural effusion or pericardial effusion is seen. There is no evidence of pneumothorax. There are normal size mediastinal and hilar lymph nodes. The heart is not enlarged. Degenerative changes of the thoracolumbar spine are present. There is no evidence of adrenal nodule. IMPRESSION: 1. Right lower lobe pulmonary nodule posteriorly measuring 11.[address] CHEST/ABD/PELV W/O CONTRAST HISTORY: Status post fall COMPARISON: None TECHNIQUE: Multiple sequential axial images of the abdomen and pelvis were obtained from the dome of the diaphragm through symphysis pubis. Patient was not given contrast through intravenous route. Oral contrast was not given. FINDINGS: The study is limited due to lack of intravenous contrast. Grade 1 anterolisthesis is seen at the L4 4 L5 level. Liver is enlarged with fatty changes measuring 18 cm. The liver, spleen, adrenal glands and pancreas are unremarkable. There is no evidence of hydronephrosis bilaterally. No evidence of renal stone is seen. There is diverticulosis. Fecal material is seen in the colon. There are normal size retroperitoneal and mesenteric lymph nodes. No ascites is seen. Atherosclerotic changes are present. Pelvic sidewalls are symmetric bilaterally. Bladder is well distended without wall thickening. IMPRESSION: 1. No ascites. CT was performed with one or more following dose reduction techniques: automated exposure control, adjustment of the mA and kv according to patient's size, or use of a iterative reconstruction technique.
--- NOTE | 2024-08-18 10:31 | ERN ---
ED Note History of Present Illness Stated Complaint: MULTIPLE COMPLAINTS POST FALL Chief Complaint: Rib Pain Time Seen by MD: 08:11 Dictation: 58-year-old female presents to the ED via EMS for evaluation post fall onset three days ago. Patient is complaining of left-sided rib pain, left lower back pain that radiates down her left leg, but denies any head injury, LOC, vomiting or other associated symptoms at this time. No blood thinners. Allergies: Coded Allergies: No Known Drug Allergies (Verified Allergy, Unknown, 04/29/20) Home Meds Active Scripts Ibuprofen (Ibuprofen) 400 Mg Tablet, 400 MG PO TIDP, #30 TAB Prov:JEFFRY GILES MD 07/15/22 Neomy Sulf/Bacitrac Zn/Poly (Neosporin Ointment) 28.3 Gm Oint...g., 28.3 GM TP BID for 7 Days, #60 TUBE Prov:FLEX AGUILAR MD 12/08/21 Pantoprazole Sodium (Protonix) 40 Mg Tablet.dr, 40 MG PO DAILY for 30 Days, #30 TAB Prov:JESSICA PARKER Jr., MD 05/16/20 Ibuprofen (Ibuprofen 800 mg Tab) 800 Mg Tab, 800 MG PO TIDAC for 4 Days, #12 TAB Prov:JESSICA PARKER Jr., MD 05/16/20 Baclofen (Baclofen) 5 Mg Tablet, 5 MG PO TID for 4 Days, #12 TAB Prov:JESSICA PARKER Jr., MD 05/16/20 Lisinopril/Hydrochlorothiazide (Lisinopril-Hctz 10-12.5 mg Tab) 1 Each Tablet, 1 EACH PO DAILY for 30 Days, #30 TAB Prov:JESSICA PARKER Jr., MD 05/03/20 Amlodipine Besylate (Norvasc 5Mg Tab) 5 Mg Tablet, 5 MG PO DAILY for 30 Days, #30 TAB Prov:JESSICA PARKER Jr., MD 05/03/20 Past Medical History Past Medical History: Anxiety, Arthritis, Bipolar, Depression, High Cholesterol, Uterine Fibroids Additional Past Medical Hx: HX OF GOUT Surgical History: Other Review of System Dictation Constitutional: Positive for fall Negative for fever,chills, and weight loss Eyes: Negative for injury, pain,redness, and discharge ENT: Negative for injury,pain or swelling Cardiovascular: Negative for chest pain, palpitations, and edema Respiratory: Negative for shortness of breath, cough, and wheezing, Abdomen/GI: Positive for left rib pain Negative for abdominal pain, nausea, vomiting, diarrhea, and constipation Back: Positive for lower back pain : Negative for injury, bleeding and discharge MS/Extremity: Positive for left leg pain Skin: Negative for rash, and discoloration Neuro: Negative for headache, weakness, numbness, tingling, and seizure Psych: Negative for suicide ideation, homicidal ideation, and hallucinations Initial Vital Sign VS Vital Signs Date Time Temp Pulse Resp B/P (MAP) Pulse Ox O2 Delivery O2 Flow Rate FiO2 08/18/24 08:07 97.5 59 20 170/74 99 Room Air Physical Exam Dictation General: awake, alert, NAD Head/Face: Normocephalic, atraumatic Eyes: PERRL, EOMI, vision at baseline ENT: oral cavity clear, TMs clear, no signs of infection Neck: Trachea midline, supple, no nuchal rigidity Cardiovascular: RRR, normal S1/S2, No MRGs, no JVD Chest wall: Left lateral rib tenderness Respiratory: CTAB, no respiratory distress, No rales or wheezes Abdomen: Soft, non-tender, non-distended, normal bowel sounds, no guarding or rebound. Skin: Warm, dry, normal turgor, no rash MS/Extremity: Pulses equal, no cyanosis, neurovascular intact, FROM Neuro: COAx4, GCS 15, strength 5/5, CN 2-12 intact, normal cerebellar exam, normal gait, Psych: Normal behavior, mood, and affect normal Results (Laboratory/Radiology) CT Scan Comment: REASON: injury ORDERING PHYSICIAN: YEYO BASS MD PROCEDURE: CAP WO - CT CHEST/ABD/PELV W/O CONTRAST CT CHEST/ABD/PELV W/O CONTRAST HISTORY: Injury COMPARISON: 05/14/2020 TECHNIQUE: Multiple sequential axial images of the chest were obtained from the thoracic inlet through upper abdomen. Patient was not given contrast through intravenous route. FINDINGS: There is right lower lobe pulmonary nodule posteriorly measuring 11.3 mm. There are bibasilar linear atelectasis. Tiny hiatal hernia is seen. No pleural effusion or pericardial effusion is seen. There is no evidence of pneumothorax. There are normal size mediastinal and hilar lymph nodes. The heart is not enlarged. Degenerative changes of the thoracolumbar spine are present. There is no evidence of adrenal nodule. IMPRESSION: 1. Right lower lobe pulmonary nodule posteriorly measuring 11.[address] CHEST/ABD/PELV W/O CONTRAST HISTORY: Status post fall COMPARISON: None TECHNIQUE: Multiple sequential axial images of the abdomen and pelvis were obtained from the dome of the diaphragm through symphysis pubis. Patient was not given contrast through intravenous route. Oral contrast was not given. FINDINGS: The study is limited due to lack of intravenous contrast. Grade 1 anterolisthesis is seen at the L4 4 L5 level. Liver is enlarged with fatty changes measuring 18 cm. The liver, spleen, adrenal glands and pancreas are unremarkable. There is no evidence of hydronephrosis bilaterally. No evidence of renal stone is seen. There is diverticulosis. Fecal material is seen in the colon. There are normal size retroperitoneal and mesenteric lymph nodes. No ascites is seen. Atherosclerotic changes are present. Pelvic sidewalls are symmetric bilaterally. Bladder is well distended without wall thickening. IMPRESSION: 1. No ascites. CT was performed with one or more following dose reduction techniques: automated exposure control, adjustment of the mA and kv according to patient's size, or use of a iterative reconstruction technique. DICTATED BY: ALEJANDRO FAY MD DATE: 08/18/24 0952 ED Course ED Course Orders Procedure Category Date Status Time Ct Chest/Abd/Pelv W/O CT 08/18/24 Resulted Contrast 08:21 Morphine 4mg Syg PHA 08/18/24 Complete (Morphine 4mg Syg) 08:30 Ondansetron 4mg Inj PHA 08/18/24 Complete (Zofran 4mg Inj) 08:30 Current Medications Medications (Trade) Dose Ordered Sig/Rusty Route PRN Reason Start Time Stop Time Status Last Admin Dose Admin Morphine Sulfate (morPHINE 4MG SYG) 4 mg ONCE ONCE IVP 08/18/24 08:30 08/18/24 08:31 DC 08/18/24 08:39 Ondansetron HCl (zoFRAN 4MG INJ) 4 mg ONCE ONCE IVP 08/18/24 08:30 08/18/24 08:31 DC 08/18/24 08:39 Vital Signs Date Time Temp Pulse Resp B/P (MAP) Pulse Ox O2 Delivery O2 Flow Rate FiO2 08/18/24 08:07 97.5 59 20 170/74 99 Room Air Medical Decision Making MDM MDM: Differential diagnosis: Rib fracture, contusion,fall Rationale: Tests considered and ordered secondary to shared decision making include: labs and radiology Risk of complication and/or morbidity or mortality of patient management: None Medications-Per medication reconciliation Need for hospitalization: Patient does meet criteria for hospitalization. Need for emergency major/minor surgery: No There are no social concerns with this patient. I independently interpreted the test that were performed, results were reviewed by me and considered findings on radiology if ordered. DX & DISP Disposition: Discharge Departure Impression: Primary Impression: Contusion of rib on left side Additional Impression: Pulmonary nodule 1 cm or greater in diameter Condition: Stable Referrals: MARY ELLEN CROCKER (PCP) YEYO BASS MD Aug 18, 2024 10:31
[2024-08-18] MEDS: HYDROcodone/APAP 5/325 1 TAB TABLET PO ONE (11:41)
[2024-08-18] MEDS: ketOROlac 15MG/ML VIAL (15MG/ML) IV ONE (11:41)
[2024-08-18 11:50] VITALS: BP 144/69; PULSE 69; RESP 20; TEMP 97.9; O2SAT 99
== END 2024-08-18 11:52 | disposition home or self-care (01) ==
LOC: EDH 08:05
DX: S20.212A Contusion of left front wall of thorax, initial encounter (principal); R91.1 Solitary pulmonary nodule; E78.00 Pure hypercholesterolemia, unspecified; F31.9 Bipolar disorder, unspecified; F41.9 Anxiety disorder, unspecified; M19.90 Unspecified osteoarthritis, unspecified site; M10.9 Gout, unspecified; Z79.899 Other long term (current) drug therapy; Z87.42 Personal history of other diseases of the female genital tract; W18.39XA Other fall on same level, initial encounter; Y93.89 Activity, other specified; Y92.89 Other specified places as the place of occurrence of the external cause; Y99.8 Other external cause status
CPT/HCPCS: 99285; 71250; 96374; 96375; 74176; J1885; J2405; J2270

== ENCOUNTER 2025-03-29 08:37 | Emergency (ER) | payer OTHER ==
[~2025-03-29] VITALS: Ht 154.9 cm; Wt 104.3 kg
[2025-03-29 08:39] VITALS: BP 208/99; PULSE 54; RESP 18; TEMP 97.8
[2025-03-29] MEDS ORDERED: ORPHENADRINE 60MG/2ML IM ONE (09:00)
--- NOTE | 2025-03-29 10:02 | ERN ---
General Chief Complaint: FOOT INJURY/PAIN Stated Complaint: LT FOOT PAIN Time Seen by MD: 08:39 Source: patient History of Present Illness Initial Comments Patient is a 59-year-old female coming in complaining of left foot pain. Per patient she has a history of gout has been having this pain for about five days. No trauma reported. Patient is able to ambulate but with some discomfort. Allergies: Coded Allergies: No Known Drug Allergies (Verified Allergy, Unknown, 04/29/20) Home Meds Active Scripts Ibuprofen (Ibuprofen) 400 Mg Tablet, 400 MG PO TIDP, #30 TAB Prov:JEFFRY GILES MD 07/15/22 Neomy Sulf/Bacitrac Zn/Poly (Neosporin Ointment) 28.3 Gm Oint...g., 28.3 GM TP BID for 7 Days, #60 TUBE Prov:FLEX AGUILAR MD 12/08/21 Pantoprazole Sodium (Protonix) 40 Mg Tablet.dr, 40 MG PO DAILY for 30 Days, #30 TAB Prov:JESSICA PARKER Jr., MD 05/16/20 Ibuprofen (Ibuprofen 800 mg Tab) 800 Mg Tab, 800 MG PO TIDAC for 4 Days, #12 TAB Prov:JESSICA PARKER Jr., MD 05/16/20 Baclofen (Baclofen) 5 Mg Tablet, 5 MG PO TID for 4 Days, #12 TAB Prov:JESSICA PARKER Jr., MD 05/16/20 Lisinopril/Hydrochlorothiazide (Lisinopril-Hctz 10-12.5 mg Tab) 1 Each Tablet, 1 EACH PO DAILY for 30 Days, #30 TAB Prov:JESSICA PARKER Jr., MD 05/03/20 Amlodipine Besylate (Norvasc 5Mg Tab) 5 Mg Tablet, 5 MG PO DAILY for 30 Days, #30 TAB Prov:JESSICA PARKER Jr., MD 05/03/20 Past Medical History Past Medical History: Arthritis, High Cholesterol, Heart Disease Medical History Other: GOUT Past Surgical History: Surgical History Other: HEART STENT ROS Dictation CONSTITUTIONAL: No chills, no fever, no weakness, no diaphoresis, no malaise. HEAD/FACE: No signs of trauma. EENT: No eye pain, no blurred vision, no tearing, no double vision, no ear pain, no ear discharge, no nose pain, no nasal congestion, no throat pain, no throat swelling, no mouth pain. RESPIRATORY: No cough, no orthopnea, no SOB, no stridor, no wheezing. CARDIOVASCULAR: No chest pain, no edema, no palpitations, no syncope. GASTROINTESTINAL/ABDOMINAL: No abdominal pain, no constipation, no diarrhea, no nausea, no vomiting. GENITOURINARY: No abnormal discharge, no dysuria, no frequent urination, no hematuria. No complaints of pain in the genitals. MUSCULOSKELETAL: No back pain, no gout, joint pain, no joint swelling, muscle pain, no muscle stiffness, no neck pain. INTEGUMENTARY: No change in color, no change in hair/nails, no dryness, no lesion, no lumps, no rash. NEUROLOGICAL/PSYCH: No anxiety, not depressed, no emotional problem, no headache, no numbness, no pre-existing deficit, no history of seizures, no tremors, no weakness. HEMATOLOGIC/LYMPHATIC: Not anemic, no history of blood clots, no apparent bleeding, no bruising, glands not swollen. All Systems Negative, Except as Noted. Physical Exam Physical Exam Dictation VITAL SIGNS: Reviewed. GENERAL APPEARANCE: Alert, oriented x3, no acute distress, obese. HEAD AND FACE: Non-traumatic. EYES: PERRL, pink conjunctivas, eyelid no trauma, anterior chamber clear. EARS: Pinnas intact and no signs of trauma or erythema. Ear canals clear and no discharge. TMs no erythema. NOSE: No discharge, no bleeding. OROPHARYNX: Mouth normal, teeth no caries, tongue pink. Pharynx clear, no erythema. Tonsils no exudates, no abscesses noted. Mucous membrane moist. NECK: Supple, non-tender, no thyromegaly, no masses, no JVD, no bruits. BREAST: Deferred. CHEST: No tenderness, no crepitus, no paradoxical movement, no retractions. LUNGS: Clear, well-ventilated, symmetric, no rales, no wheezing, no rhonchi, no stridor, good breath sounds bilaterally. HEART: Regular rate, regular rhythm, no murmur, no gallops. VASCULAR: No peripheral edema. ABDOMEN: Soft, positive bowel sounds, nondistended, no guarding, nontender, no rebound, no masses no hepatomegaly, no splenomegaly, no Preston's sign, no hernias. RECTAL: Deferred. GENITAL: Deferred. NEUROLOGICAL: Normal speech, gross motor function intact, gross sensory function intact. MUSCULOSKELETAL: Neck nontender, full range of motion, back nontender, full range of motion. EXTREMITIES: Nontender, full range of motion. Tenderness on palpation to the left foot arch SKIN: Color pink, dry, no turgor, no rash, no lacerations, no abrasions, no contusions. LYMPHATICS: Deferred. Results Laboratory and Microbiology Labs Reviewed?: Yes MDM MDM: Differential diagnosis: Foot strain, foot pain, fibromyalgia, plantar fasciitis Rationale: Tests considered and ordered secondary to shared decision making include: Previous outside records reviewed: Old ER visits. Risk of complication and/or morbidity or mortality of patient management: None Medications-Per medication reconciliation Need for hospitalization: Patient does not meet criteria for hospitalization. Need for emergency major/minor surgery: No Patient is a 59-year-old female coming in complaining of left foot pain. While attempting to perform a x-ray was informed by x-ray technician biological health the patient was not found. Later nursing staff confirmed that patient eloped. ED Course Orders Procedure Category Date Status Time Foot Comp 3+Vws Lt RAD 03/29/25 Logged 08:41 Ketorolac PHA 03/29/25 Complete Tromethamine 15mg/Ml 09:00 Orphenadrine Citrate PHA 03/29/25 Complete (Norflex) 09:00 Current Medications Medications (Trade) Dose Ordered Sig/Rusty Route PRN Reason Start Time Stop Time Status Last Admin Dose Admin Ketorolac Tromethamine (toRADol) 15 mg ONCE ONCE IM 03/29/25 09:00 03/29/25 09:01 DC Orphenadrine Citrate (Norflex) 60 mg ONCE ONCE IM 03/29/25 09:00 03/29/25 09:01 DC Vital Signs Date Time Temp Pulse Resp B/P (MAP) Pulse Ox O2 Delivery O2 Flow Rate FiO2 03/29/25 08:39 97.9 54 18 208/99 18 Room Air 0 DX & DISP Disposition: AMA Departure Impression: Primary Impression: Foot pain Condition: Against Medical Advice Additional Instructions: Was informed by nursing staff the patient eloped from ER without notifying anybody Referrals: MARY ELLEN CROCKER (PCP) Time of Disposition: 10:47 FLEX AGUILAR MD Mar 29, 2025 10:02
--- NOTE | 2025-03-29 11:00 | NUR ---
called pt multiple times from lobby, pt reloped. made dr. navarro aware.
== END 2025-03-29 11:40 | disposition left against medical advice (07) ==
LOC: EDH 08:37
DX: M79.672 Pain in left foot (principal); E78.00 Pure hypercholesterolemia, unspecified; I51.9 Heart disease, unspecified; Z79.899 Other long term (current) drug therapy; Z98.890 Other specified postprocedural states
CPT/HCPCS: 99282